=== PATIENT | male | born 1950 | race Caucasian/White ===

== ENCOUNTER 2023-02-01 06:47 | Emergency (ER) | payer OTHER ==
[2023-02-01 07:02] VITALS: BP 127/70; PULSE 79; RESP 18; TEMP 99.4; BMI 30.2
[2023-02-01] MEDS ORDERED: DEXAMETHASONE SOD PHOSPHATE 10 MG/1 ML VIAL IM ONE (07:52)
[2023-02-01] MEDS ORDERED: KETOROLAC TROMETHAMINE 30 MG/1 ML VIAL IM ONE (07:52)
== END 2023-02-01 10:20 | disposition home or self-care (01) ==
LOC: JER 06:47
PROC: 3E0233Z Introduction of Anti-inflammatory into Muscle, Percutaneous Approach (ICD-10-PCS; principal; 2023-02-01)
PROC: 3E023GC Introduction of Other Therapeutic Substance into Muscle, Percutaneous Approach (ICD-10-PCS; 2023-02-01)
DX: S74.01XA Injury of sciatic nerve at hip and thigh level, right leg, initial encounter (principal); X58.XXXA Exposure to other specified factors, initial encounter
CPT/HCPCS: 72192-TC; 99284-25; J1100